=== PATIENT | male | born 1945 | race Caucasian/White ===

== ENCOUNTER 2020-08-14 16:25 | Emergency (ER) | payer MEDICARE, OTHER, SELFPAY | END 2020-08-14 17:34 | disposition home or self-care (01) | LOC: CSHERS 16:25 | DX: S13.9XXA Sprain of joints and ligaments of unspecified parts of neck, initial encounter (principal); W01.0XXA Fall on same level from slipping, tripping and stumbling without subsequent striking against object, initial encounter | CPT/HCPCS: 70450; 72125 ==